=== PATIENT | male | born 1960 | race Caucasian/White ===

== ENCOUNTER 2016-09-25 10:08 | Emergency (ER) | payer OTHER ==
[~2016-09-25] VITALS: Ht 188 cm; Wt 122.7 kg
[~2016-09-25 10:08] MED LIST: AMLO5TAB2 PO; ASPI-973 PO; CALC1POW29 MC; GLUC750C PO; LEVO100T45 PO; LISI1TAB11 PO; LORA1TAB PO; MULT-1018 PO; OMEP40CA36 PO; PRAV20TA2 PO; SUCR1TAB PO; TRAZ-115 PO
[2016-09-25 10:14] VITALS: BP 146/61; PULSE 75; RESP 15; O2SAT 96
--- NOTE | 2016-09-25 10:25 | ED.REPORT ---
HPI-Chest Pain 40 and Over Date of Service September 25, 2016 ED Provider: Nabeel De Guzman MD 56 y/o male with a hx of GERD, HTN and hyperlipidemia presents to the ED complaining of sudden, non-radiating, intermittent chest pain, onset at 09:20 while he was doing housework. He describes it as a sharp, fleeting pain that lasts approximately a second and returns every 1-2 minutes. The pt denies SOB, diaphoresis, nausea, vomiting, headache and palpitations. He states he waited about 2 hours to see if his sx improved before presenting to the ED. His sx seemed to improve since arriving at the ED. He states he has had heartburn but today's chest pain feels different. He took some Pepto Bismol, with no improvement. The pt reports his father at age 66 due to aortic aneurysm and his uncle had experienced several Myocardial Infarctions before age 40. Nursing Notes Stated Complaint: CHEST PAIN Chief Complaint: Chest Pain Nursing Notes Reviewed: Yes Allergies: Coded Allergies: iodine (Verified Allergy, Severe, Hives, 01/24/16) Pt states shellfish only. 12/25/15 kld shellfish derived (Verified Allergy, Severe, Hives, 01/24/16) Scheduled Amlodipine (Amlodipine) 5 Mg Tablet 5 MG PO DAILY Aspirin (Aspirin) 81 Mg Tablet 81 MG PO DAILY Calcium Carbonate (Coral Calcium) 1 Gm Powder 1 GM MC DAILY Glucosamine Sulfate 2Kcl (Glucosamine Sulfate) 750 Mg Capsule 750 MG PO DAILY Levothyroxine (Levoxyl) 100 Mcg Tablet 100 MCG PO DAILY Lisinopril / HCTZ 20-25 mg (Lisinopril / HCTZ 20-25 mg) 1 Each Tablet 1 EACH PO DAILY Multivitamin (Multi Vitamin Daily) 1 Each Tablet 1 EACH PO DAILY Omeprazole (Omeprazole) 40 Mg Capsule.dr 40 MG PO BID Pravastatin (Pravastatin) 20 Mg Tablet 20 MG PO DAILY Sucralfate (Sucralfate) 1 Gm Tablet 1 GM PO QID Trazodone (Trazodone) 50 Mg Tablet 50 MG PO TID Scheduled PRN Lorazepam (Lorazepam) 1 Mg Tablet 1 MG PO TID PRN PRN For Anxiety General Time Seen by MD: 10:23 Chief Complaint Chest pain Hx Obtained From: Patient Arrived By: Walk-in Sudden in Onset?: Yes Onset Occurred: 1 - 4 hours ago Symptom Duration: Intermittent Location: : Chest left Quality: Sharp Radiation: : Does not radiate Severity: Current: Mild Severity: Maximum: Moderate Recent Healthcare: No recent doctor visit Similar Sx Previous: No Risk Factors HEART Score HEART for MACE: Low index of susp (0), Normal ECG (0), Age 45 - 65 (1), 1-2 CAD risk factors (1), < or = to NL troponin (0) HEART for MACE Score: 0-3 (low risk 0.9%-1.7%) Past Medical History Past Medical History Reports: GERD, Hyperlipidemia, Hypertension Reports: Obesity, Thyroid disease Smoking History Former Smoker Social History Alcohol Use: Denies alcohol use Ambulatory Status Independent Review of Systems Denies: Palpitations Respiratory: Denies: Shortness of breath Cardiovascular: Reports: Chest pain GI: Denies: Nausea, Vomiting Skin: Denies Diaphoresis Neurologic: Denies: Headache Complete sys rev & neg: except as marked. Physical Exam Initial Vital Signs Vital Signs (First) Date Time Temp Pulse Resp B/P Pulse Ox O2 Delivery O2 Flow Rate FiO2 09/25/16 10:14 36.7 75 15 146/61 96 Room Air Initial VS: Reviewed Head / Eyes: Atraumatic, Normocephalic, PERRL Neck: Supple, Non-tender, Full range of motion Extremities: Vascular intact, Neuro intact, No swelling, No tenderness Skin: Warm, Dry, No cyanosis Neurologic: Alert, Oriented, Nonfocal Psychiatric: Mood/affect normal, Behavior normal, Normal thought content General/Constitutional: Awake, Alert, No acute distress, Cooperative Appearance / Presentation: Positive: Obese Respiratory / Chest: Atraumatic, Breath sounds NL, Breath sounds = bilat, No respiratory distress, No rales, No rhonchi, No wheezing Cardiovascular: Heart rate NL, Regular rhythm, Heart sounds NL, No gallop, No murmurs, No rubs Lower Ext Edema: Positive: Non-Pitting 2+ pulse in all four extremities. Abdomen: Atraumatic, Soft, Non-tender, No guarding, No rebound Interpretation & Diagnostics Lab Results Interpretation Result Diagram: 09/25/16 1030 09/25/16 1030 Test 09/25/16 10:30 White Blood Count 4.9th/mm3 (3.8-10.1) Red Blood Count 5.21mil/mm3 (4.40-5.80) Hemoglobin 16.0g/dL (13.8-17.2) Hematocrit 44.5% (41.0-50.0) Mean Corpuscular Volume 85.4fL (81-100) Mean Corpuscular Hemoglobin 30.7pg (27.0-35.0) Mean Corpuscular Hemoglobin Concent 36.0% (32.0-37.0) Red Cell Distribution Width 12.5% (12.3-15.4) Platelet Count 254bil/L (150-400) Neutrophils (%) (Auto) 55.2% (40-74) Lymphocytes (%) (Auto) 29.3% (14-46) Monocytes (%) (Auto) 9.8% (4-12) Eosinophils (%) (Auto) 5.1% (0-5) Basophils (%) (Auto) 0.4% (0-3) D-Dimer < 0.50mg/L FEU (<0.50) Sodium Level 138mEq/L (134-144) Potassium Level 4.0mEq/L (3.5-5.2) Chloride Level 97mEq/L (97-108) Carbon Dioxide Level 24mmol/L (18-29) Blood Urea Nitrogen 12mg/dL (6-24) Creatinine 0.78mg/dL (0.76-1.27) Estimat Glomerular Filtration Rate 109mL/min (>59) Glucose Level 123mg/dL (60-99) Calcium Level 9.7mg/dL (8.5-10.1) Magnesium Level 2.0mg/dL (1.6-2.6) Total Bilirubin 0.4mg/dL (0.0-1.2) Aspartate Amino Transf (AST/SGOT) 38U/L (0-50) Alanine Aminotransferase (ALT/SGPT) 43U/L (0-44) Alkaline Phosphatase 77U/L (25-150) Troponin T < 0.010ug/L (0.0-0.011) Total Protein 7.5g/dL (6.4-8.4) Albumin 4.7g/dL (3.4-5.0) ECG Interpretation ECG Interpretation: Normal sinus rhythm. Rate 70 Time: 10:31 Interpreted by: ED physician X-Ray Chest Interpretation Chest Xray Interpretation: IMPRESSION: No acute process. Dictated by: Sherlyn Lucas M.D. on 09/25/2016 at 11:01 Approved by: Sherlyn Lucas M.D. on 09/25/2016 at 11:01 View: Portable, 1 view Interpretation / Wet Read by: Interpret - Radiologist Re-Eval/Medical Decision Time of Eval: 12:55 Re-Evaluation/Progress Note: Rechecked pt. Discussed lab, imaging results and diagnosis. Informed the pt of the plan to discharge. Pt understands and agrees with plan. F/U instructions and RTER warning given. All questions addressed. Counseled Regarding: Diagnosis, Lab results, Need for follow-up, When/why to return to ED Discharge & Departure Primary Impression: Chest pain Chest pain type: unspecified Qualified Code: R07.9 - Chest pain, unspecified Disposition: Home Discharge Condition All VS Reviewed: Yes Condition: Stable Patient Instructions: Chest Pain (ED) Additional Instructions: Your lab and imaging results were reassuring. There is no sign of heart attack, pneumonia, or other dangerous cause of her chest pain is discovered. Your risk for an acute heart attack in the coming weeks is relatively low. I do think it is essential that you follow-up in the coming days to discuss whether or not further investigation is warranted. Follow up with your primary care provider today to set up an appointment next week. Return to the emergency department in case of difficulty breathing, significant increase in chest pain, or any new or concerning symptoms. Referrals: Dipesh Dobson MD (PCP) Scribe Attestation Portions of this note were transcribed by Pooja Lo. I, , personally performed the history, physical exam and medical decision-making;I reviewed and confirmed the accuracy of the information in the transcribed note. Signed by Jessi Butler. 09/25/16 [id number] copies to: Dipesh Dobson MD, Kirk H MD September 25, 2016 10:25 Pooja Lo September 25, 2016 10:42 Pooja Lo September 25, 2016 10:42
[2016-09-25 10:34] LABS: BASOPHILS % (AUTO) 0.4 % (0-3); EOSINOPHILS % (AUTO) 5.1 % (0-5); MONOCYTES % (AUTO) 9.8 % (4-12); Mean Corpuscular Hemoglobin 30.7 pg (27.0-35.0); Mean Corpuscular Volume 85.4 fL (81-100); NEUTROPHILS % (AUTO) 55.2 % (40-74); Platelet Count 254 bil/L (150-400)
[2016-09-25 11:03] LABS: TROPONIN T < 0.010 ug/L (0.0-0.011)
--- NOTE | 2016-09-25 11:03 | DRSVH ---
PROCEDURE: X-RAY CHEST ONE VIEW, PORTABLE ([id number]) INDICATIONS: CHEST PAIN TECHNIQUE: One view of the chest was acquired. COMPARISON: [facility], CR, XR CHEST 1VW (PORTABLE), 08/31/2015, 13:30. FINDINGS: Surgical changes and devices: None. Lungs and pleura: No pleural effusions or pneumothorax. Lungs are clear. Mediastinum: Mediastinal contours appear normal. Heart size is normal. Bones and chest wall: No suspicious bony lesions. Overlying soft tissues appear unremarkable. IMPRESSION: No acute process. Dictated by: Sherlyn Lucas M.D. on 09/25/2016 at 11:01 Approved by: Sherlyn Lucas M.D. on 09/25/2016 at 11:01
[2016-09-25 11:48] VITALS: BP 130/64; PULSE 80; RESP 20; O2SAT 95
[2016-09-25 12:55] VITALS: BP 131/66; PULSE 72; O2SAT 99
== END 2016-09-25 13:12 | disposition home or self-care (01) ==
LOC: SED 10:08
DX: R07.9 Chest pain, unspecified (principal); K21.9 Gastro-esophageal reflux disease without esophagitis; E78.5 Hyperlipidemia, unspecified; I10 Essential (primary) hypertension; Z79.82 Long term (current) use of aspirin; Z87.891 Personal history of nicotine dependence; Z88.8 Allergy status to other drugs, medicaments and biological substances; Z91.013 Allergy to seafood